=== PATIENT | female | born 1970 | race African-American/Black ===

== ENCOUNTER 2021-06-21 12:47 | Emergency (ER) | payer OTHER, SELFPAY ==
[2021-06-21 13:34] VITALS: BP 128/78; PULSE 100; RESP 16; TEMP 36.7; O2SAT 65
[2021-06-21 13:44] LABS: Appearance Urine Cloudy (Clear); Bilirubin Urine Negative (Negative); Blood Urine 2+ (Negative); Color Urine Yellow (Yellow); Glucose Urine UA Negative (Negative); Ketones Urine Negative (Negative); Leukocyte Esterase Ur Negative LEU/UL (Negative); Nitrate Urine Positive (Negative); Protein Urine Negative (Negative); Specific Grav Ur 1.025 (1.001-1.035); pH Urine 5.5 (5.0-9.0)
--- NOTE | 2021-06-21 13:48 | ED.FEMALEGU ---
HPI - Female Genitourinary General Chief complaint: Urogenital-Female Stated complaint: urinary s/s Time Seen by Provider: 06/21/21 12:51 History of Present Illness HPI Narrative: 50-year-old female presents to the emergency room with complaints of suprapubic pain and dysuria for 5 to 7 days. Patient denies any fever, Related Data Allergies Allergy/AdvReac Type Severity Reaction Status Date / Time No Known Allergies Allergy Unverified 11/05/17 10:26 Review of Systems Review of Systems: CONSTITUTIONAL: Denies fever, chills, or sweats. EYES: Denies visual changes, redness, or discharge. ENT: Denies rhinorrhea, congestion, sore throat, or otalgia. CARDIOVASCULAR: Denies chest pain, palpitations, or edema. RESPIRATORY: Denies cough or dyspnea. GASTROINTESTINAL: Reports suprapubic pain GENITOURINARY: Reports dysuria and hematuria SKIN: Denies rash or itching. MUSCULOSKELETAL: Denies back pain, joint pain, or myalgia. NEUROLOGIC: Denies headache, numbness, dizziness, or weakness. PSYCHIATRIC: Denies anxiety or depression. Exam Narrative: GENERAL: Well-appearing, well-nourished, and in no acute distress. HEAD: Normocephalic, atraumatic. EYES: PERRLA and EOMI.D CHEST: Clear to auscultation. No respiratory distress. No wheezes rales or rhonchi HEART: Regular rate and rhythm. No murmur heard. Normal peripheral pulses. ABDOMEN: Soft, suprapubic tenderness, nondistended, normal active bowel sounds. EXTREMITIES: Normal range of motion. No edema. SKIN: Warm, dry, no rash. NEURO: No focal deficits. Alert and oriented x3. PSYCH: Normal mood and affect. Course Vital Signs Vital signs: Vital Signs Temperature 36.7 C 06/21/21 13:34 Pulse Rate 100 06/21/21 13:34 Respiratory Rate 16 06/21/21 13:34 Blood Pressure 128/78 06/21/21 13:34 Pulse Oximetry 65 L 06/21/21 13:34 Temperature 36.7 C 06/21/21 13:34 Pulse Rate 100 06/21/21 13:34 Respiratory Rate 16 06/21/21 13:34 Blood Pressure 128/78 06/21/21 13:34 Pulse Oximetry 65 L 06/21/21 13:34 MDM - Female Genitourinary Lab Data Labs: Lab Results 06/21/21 Range/Units 13:20 Urine Color Yellow (Yellow) Urine Appearance Cloudy H (Clear) Urine pH 5.5 (5.0-9.0) Ur Specific [place] 1.025 (1.001-1.035) Urine Protein Negative (Negative) mg/dL Urine Glucose (UA) Negative (Negative) mg/dL Urine Ketones Negative (Negative) mg/dL Ur Blood (Man) 2+ H (Negative) Urine Nitrate Positive H (Negative) Urine Bilirubin Negative (Negative) Urine Urobilinogen 1.0 (<2.0) mg/dL Leukocyte Esterase Rfl Negative (Negative) SUSAN/UL Discharge Plan Discharge Clinical Impression: Urinary tract infection Qualifiers: Urinary tract infection type: acute cystitis Hematuria presence: with hematuria Qualified Code(s): N30.01 - Acute cystitis with hematuria Patient Disposition: Home, Self-Care Condition: Stable Instructions: Antibiotic Form, Dysuria (ED) Prescriptions: New nitrofurantoin monohyd/m-cryst [Macrobid] 100 mg capsule 100 mg PO Q12H 7 Days Qty: 14 RF: 0 Follow-up/Referrals: PHYSICIAN NOT ON STAFF,NONSTAFF [Primary Care Provider] - Time of Disposition: 13:50
[2021-06-21 13:54] LABS: Bacteria Urine Trace /hpf; Mucus Urine Few /lpf; Squamous Epithelial Cell Urine Many /hpf (Few)
[2021-06-21 14:01] LABS: Add Urine Microscopic? YES
== END 2021-06-21 14:00 | disposition home or self-care (01) ==
LOC: ANHED 13:56
PROVIDERS: Emergency Medicine; Emergency Provider Nurse Practitioner Family
DX: N30.01 Acute cystitis with hematuria (principal)
CPT/HCPCS: 81001; 99283

== ENCOUNTER 2021-11-11 09:32 | Emergency (ER) | payer OTHER, SELFPAY ==
--- NOTE | ~2021-11-11 | XR_ITS ---
EXAMINATION: XR foot LT min 3V DATE: 11/11/2021 10:22 INDICATION: Left foot pain. TECHNIQUE: 4 views of left foot were obtained. COMPARISON: None. FINDINGS: There is mild hallux valgus. No fracture. There is a benign bone island in first metatarsal . There is mild osteoarthritis of first metatarsophalangeal joint and some of the interphalangeal valentino nts. There is an enthesophyte at posterior aspect of calcaneal tuberosity. IMPRESSION: 1. Mild polyarticular osteoarthritis. 2. Mild hallux valgus. Reviewed, dictated and finalized at location B.
[2021-11-11 09:36] VITALS: BP 149/88; PULSE 65; RESP 14; TEMP 36.4; O2SAT 99
--- NOTE | 2021-11-11 10:13 | ED.LOWEXIN ---
HPI - Extremity Injury (Lower) General Chief Complaint: Extremity Injury, Lower Stated Complaint: left foot pain Time Seen by Provider: 11/11/21 09:48 History of Present Illness HPI Narrative: 51-year-old female presents the emergency room for gradual onset of left foot pain. Patient states the pain is worse when she is ambulating, and resolves when she is resting with her feet propped up. Patient denies any new shoes. Patient does endorse walking on concrete throughout the day. Patient has not taken any medications to alleviate her symptoms Related Data Allergies Allergy/AdvReac Type Severity Reaction Status Date / Time No Known Allergies Allergy Verified 11/11/21 09:38 Review of Systems Review of Systems: CONSTITUTIONAL: Denies fever, chills, or sweats. EYES: Denies visual changes, redness, or discharge. ENT: Denies rhinorrhea, congestion, sore throat, or otalgia. CARDIOVASCULAR: Denies chest pain, palpitations, or edema. RESPIRATORY: Denies cough or dyspnea. GASTROINTESTINAL: Denies abdominal pain, nausea, vomiting, or diarrhea. GENITOURINARY: Denies dysuria or hematuria. SKIN: Denies rash or itching. MUSCULOSKELETAL: Reports left foot pain NEUROLOGIC: Denies headache, numbness, dizziness, or weakness. PSYCHIATRIC: Denies anxiety or depression. Exam Narrative: GENERAL: Well-appearing, well-nourished, no physical limitations, and in no acute distress. HEAD: Normocephalic, atraumatic. EYES: Conjunctivae normal, PERRLA and EOMI. CHEST: Clear to auscultation. No respiratory distress. No wheezes rales or rhonchi. No tenderness. HEART: Regular rate and rhythm. No murmur heard. Normal peripheral pulses. EXTREMITIES: Left foot: Tenderness to the plantar fascia between the calcaneus and forefoot SKIN: Warm, dry, no rash. No noted wounds NEURO: No focal deficits. Alert and oriented x3. MAEW. CN's II-XI intact bilaterally, normal gait PSYCH: Cooperative. Normal mood and affect. Course Vital Signs Vital signs: Vital Signs Temperature 36.4 C L 11/11/21 09:36 Pulse Rate 65 11/11/21 09:36 Respiratory Rate 14 11/11/21 09:36 Blood Pressure 149/88 H 11/11/21 09:36 Pulse Oximetry 99 11/11/21 09:36 Oxygen Delivery Room Air 11/11/21 09:36 Temperature 36.4 C L 11/11/21 09:36 Pulse Rate 65 11/11/21 09:36 Respiratory Rate 14 11/11/21 09:36 Blood Pressure 149/88 H 11/11/21 09:36 Pulse Oximetry 99 11/11/21 09:36 Oxygen Delivery Room Air 11/11/21 09:36 Discharge Plan Discharge Clinical Impression: Plantar fasciitis Patient Disposition: Home, Self-Care Condition: Stable Instructions: Antibiotic Form, Plantar Fasciitis (ED), Plantar Fasciitis Exercises (ED) Prescriptions: New naproxen sodium 550 mg tablet 550 mg PO Q12H PRN (Reason: pain) Qty: 20 0RF No Action nitrofurantoin monohyd/m-cryst [Macrobid] 100 mg capsule 100 mg PO Q12H 7 Days Qty: 14 0RF Rx Instructions: must administer with a meal/food Follow-up/Referrals: Mike Mcnair DPM [Physician] - PHYSICIAN,[employer]ING [employer]ENT[employer] SUPERINTENDENT [Primary Care Provider] - Time of Disposition: 10:35
== END 2021-11-11 10:49 | disposition home or self-care (01) ==
PROVIDERS: Emergency Provider Nurse Practitioner Family
DX: M72.2 Plantar fascial fibromatosis (principal)
CPT/HCPCS: 73630; 99283

== ENCOUNTER 2022-01-13 15:45 | Emergency (ER) | payer OTHER, SELFPAY ==
[2022-01-13 16:03] VITALS: BP 138/97; PULSE 78; RESP 16; TEMP 36.9; O2SAT 100
--- NOTE | 2022-01-13 16:59 | ED.FEMALEGU ---
HPI - Female Genitourinary General Chief complaint: Urogenital-Female Stated complaint: uti Time Seen by Provider: 01/13/22 16:35 History of Present Illness HPI Narrative: 51-year-old female presented to the emergency department for evaluation symptoms consistent with a urinary tract infection. Patient states that she has increased foul-smelling urine and did have some back pain but denies any pain with urination. Patient also reports that 2 weeks ago she did have a day and a half of vaginal bleeding that resolved. Patient states she has been menopausal for approximately 6 years. Related Data Allergies Allergy/AdvReac Type Severity Reaction Status Date / Time No Known Allergies Allergy Verified 01/13/22 16:14 Review of Systems Review of Systems: CONSTITUTIONAL: Denies fever, chills, or sweats. EYES: Denies visual changes, redness, or discharge. ENT: Denies rhinorrhea, congestion, sore throat, or otalgia. CARDIOVASCULAR: Denies chest pain, palpitations, or edema. RESPIRATORY: Denies cough or dyspnea. GASTROINTESTINAL: Denies abdominal pain, nausea, vomiting, or diarrhea. GENITOURINARY: See HPI SKIN: Denies rash or itching. MUSCULOSKELETAL: Denies back pain, joint pain, or myalgia. NEUROLOGIC: Denies headache, numbness, or weakness. Exam Narrative: APPEARANCE: Well appearing, no pain, no distress, well-nourished. HEAD: normocephalic, atraumatic. EYES: PERRLA/EOMI, conjunctivae clear. NOSE: Normal no drainage NECK: Supple. No adenopathy, no masses. RESPIRATORY: Airway patent, respirations nonlabored. Clear to auscultation bilaterally, no rales, rhonchi, wheezing. CARDIOVASCULAR: Regular rate and rhythm without murmurs rubs or gallops. ABDOMINAL: Soft, nontender, nondistended, normal bowel sounds MUSCULOSKELETAL: Moves all extremities. Strength/ROM intact, No edema, No calf tenderness. NEURO: Alert. Cranial nerves II through XII intact. Grossly intact SKIN: Warm, dry. Normal Color Course Course Emergency Course: Patient was started on antibiotics for a urinary tract infection. Patient was updated the results of her work-up. All question concerns were addressed. Vital Signs Vital signs: Vital Signs Temperature 98.4 F 01/13/22 16:03 Pulse Rate 78 01/13/22 16:03 Respiratory Rate 16 01/13/22 16:03 Blood Pressure 138/97 H 01/13/22 16:03 Pulse Oximetry 100 01/13/22 16:03 Temperature 98.4 F 01/13/22 16:03 Pulse Rate 77 01/13/22 17:17 Respiratory Rate 15 01/13/22 17:17 Blood Pressure 133/88 01/13/22 17:17 Pulse Oximetry 99 01/13/22 17:17 MDM - Female Genitourinary Lab Data Labs: Lab Results 01/13/22 Range/Units 16:44 Urine Color Yellow (Yellow) Urine Appearance Slightly cloudy (Clear) Urine pH 6.0 (5.0-9.0) Ur Specific [place] 1.025 (1.001-1.035) Urine Protein Trace (Negative) mg/dL Urine Glucose (UA) Negative (Negative) mg/dL Urine Ketones Trace (Negative) mg/dL Ur Blood (Man) 2+ H (Negative) Urine Nitrate Positive H (Negative) Urine Bilirubin Negative (Negative) Urine Urobilinogen 1.0 (<2.0) mg/dL Leukocyte Esterase Rfl 1+ H (Negative) SUSAN/UL Urine RBC 21-50 H (0-2) /hpf Urine WBC 10-15 H /hpf Ur Squamous Epith Cells Many H (Few) /hpf Urine Mucus Heavy H /lpf Discharge Plan Discharge Clinical Impression: Urinary tract infection Patient Disposition: Home, Self-Care Condition: Stable Instructions: Antibiotic Form, Urinary Tract Infection in Women (ED) Additional Instructions: Antibiotic as directed until completed. Drink plenty fluids. Pyridium as needed for urinary pain. Have close follow-up with a primary care physician. Also recommend close follow-up with [employer]. If you have any worsening symptoms please call or return to the emergency department. Prescriptions: New cephalexin 500 mg capsule 500 mg PO Q12H 7 Days Qty: 14 0RF phenazopyridine [Pyridium] 100 mg tablet 100 m
[2022-01-13 17:03] LABS: Appearance Urine Slightly Cloudy (Clear); Bilirubin Urine Negative (Negative); Blood Urine 2+ (Negative); Color Urine Yellow (Yellow); Glucose Urine UA Negative (Negative); Ketones Urine Trace mg/dL (Negative); Leukocyte Esterase Ur 1+ LEU/UL (Negative); Nitrate Urine Positive (Negative); Protein Urine Trace mg/dL (Negative); Specific Grav Ur 1.025 (1.001-1.035)
[2022-01-13 17:09] LABS: Mucus Urine Heavy /lpf; RBC Urine 21-50 /hpf (0-2); Squamous Epithelial Cell Urine Many /hpf (Few)
[2022-01-13 17:10] LABS: Add Urine Microscopic? YES
[2022-01-13] MEDS: CEPHALEXIN 500 MG CAPSULE PO (17:14)
[2022-01-13] MEDS: PHENAZOPYRIDINE HCL 100 MG TABLET PO (17:14)
[2022-01-13 17:17] VITALS: BP 133/88; PULSE 77; RESP 15; O2SAT 99
== END 2022-01-13 17:17 | disposition home or self-care (01) ==
PROVIDERS: Emergency Provider Emergency Medicine
DX: N39.0 Urinary tract infection, site not specified (principal)
CPT/HCPCS: 81001; 87086; 87088; 99283; A9270

== ENCOUNTER 2024-06-18 13:14 | Emergency (ER) | payer MEDICAID, SELFPAY ==
--- OUTSIDE RECORDS SUMMARY | 2024-06-18 13:16 | XMS_ITS | Data Portability ---
Author Organization [facility] Address [address] [place] [address] Assessment No assessment recorded. Plan of Treatment Reminders Order Date Submit Date Provider Last Modified By Organization Details Last Modified Time Details Appointments None recorded. Lab urinalysis , dipstick 2016 017 [email or web address] 6 In-Office Order, Internal Use Only DO Not Attach Compendium DO Not Attach Compendium, Do Not Delete/merge, [id number] 7 18:40:47 test, urine 2016 017 [email or web address] 6 In-Office Order, Internal Use Only DO Not Attach Compendium DO Not Attach Compendium, Do Not Delete/merge, [id number] 7 18:40:47 urinalysis , dipstick 2014 015 3 In-Office Order, Internal Use Only DO Not Attach Compendium DO Not Attach Compendium, Do Not Delete/merge, [id number] 5 20:19:10 chlamydia trachomati s Ag, unspecifie d specimen, immunofluo rescence 2014 015 [facility], [address], [address], [place], [address], 5 09:55:04 urinalysis , dipstick 2014 015 [email or web address] 3 In-Office Order, Internal Use Only DO Not Attach Compendium DO Not Attach Compendium, Do Not Delete/merge, [id number] 5 20:35:53 Referral None recorded. Procedures None recorded. Surgeries None recorded. Imaging mammogram, screening 2014 015 [email or web address] Not available 5 16:14:57 Medication Orders ciprofloxa dolores 500 mg tablet 2016 017 [id number], [address], [place], [place], [id number], 7 18:41:14 phenazopyr idine 200 mg tablet 2016 017 [facility] #43042, [address], [place], [place], [id number], 7 18:42:06 Cipro 500 mg tablet 2014 015 [facility] #96065, [address], [place], [place], [id number], 5 20:19:14 Diflucan 150 mg tablet 2014 015 [facility] #87415, [address], [place], [place], [id number], 5 20:19:15 cyclobenza esteban 10 mg tablet 2014 015 [facility] #94960, [address] , [place], [place], [id number], 5 15:38:42 Cipro 250 mg tablet 2014 015 3 [facility]06190, [address], [place], [place], [id number], 5 20:35:53 Patient TargetsNo targets recorded. Patient Instructions Encounter Date Encounter Id Patient Instructions Last Modified By Organization Details Last Modified Time 03/20/2014 [id number] [place] [facility] 1. GOD 2.HERBS OF THE EARTH: Fruit, vegetables, nuts, & berries. Decrease the meat in your diet. 3.WATER. The life beverage 4.EXERCISE: You don't use it, You lose it. 5. SUNLIGHT: Be careful not get sunburned elías Not available 03/20/2014 20:35:53 YES, YOU HAVE A BLADDER INFECTION.b>Disch arge Instructions - Urinary Tract Infections - Drink plenty of fluids. - Increase vitamin C. - Avoid caffeine and alcohol. - Take all antibiotics unless stated otherwise. Return to see your doctor as needed elías Not available 03/20/2014 20:35:53 12/27/2014 [id number] [place] [facility] 1. GOD 2.HERBS OF THE EARTH: Fruit, vegetables, nuts, & berries. Decrease the meat in your diet. 3.WATER. The life beverage 4.EXERCISE: You don't use it, You lose it. 5. SUNLIGHT: Be careful not get sunburned elías Not available 12/27/2014 20:19:10 FOLLOW UP IN 2 WEEKS WITH YOUR DOCTOR. FOLLOW UP HERE NEEDED. elías Not available 12/27/2014 20:19:10 08/07/2016 [id number] I advised ff, evie any sodas with water .....avoid bubble baths , douching ; wipe front to back with toilet tissue. get a pcp megan Not available 08/07/2016 18:43:38 Reason for Referral None Reported. Results Created Date Observation Date Name Description Value Unit Range Abnormal Flag Note LastModifiedBy Organization Detail LastModifiedTime 08/08/19 17 08/07/2016 pregn karely test, urine HCG negati ve Not Available In-Office Order Internal Use Only DO Not Attach Compendium DO Not Attach Compendium, Do Not Delete/merge, [id number] 08/07/2016 18:32:03 08/08/19 17 08/07/2016 urina lysis , dipst ick Leukocytes Modera te Not Available In-Office Order Internal Use Only DO Not Attach Compendium DO Not Attach Compendium, Do Not Delete/merge, [id number] 08/07/2016 18:27:21 08/08/19 17 08/07/2016 urina lysis , dipst ick Nitrite negati ve Not Available In-Office Order Internal Use Only DO Not Attach Compendium DO Not Attach Compendium, Do Not Delete/merge, 08/07/2016 18:27:21 08/08/1908/07/2016 urina lysis , dipst ick Urobilinogen .2 Not Available In-Of fice Order Internal Use Only DO Not Attach Compendium DO Not Attach Compendium, Do Not Delete/merge, 08/07/2016 18:27:21 08/08/1908/07/2016 urina lysis , dipst ick Protein Trace Not Available In-Office Order Internal Use Only DO Not Attach Compendium DO Not Attach Compendium, Do Not Delete/merge, 08/07/2016 18:27:21 08/08/1908/07/2016 urina lysis , dipst ick pH 5.5 Not Available In-Office Order Internal Use Only DO Not Attach Compendium DO Not Attach Compendium, Do Not Delete/merge, 08/07/2016 18:27:21 08/08/1908/07/2016 urina lysis , dipst ick Blood Hemoly zed: Trace Not Available In-Office Order Internal Use Only DO Not Attach Compendium DO Not Attach Compendium, Do Not Delete/merge, 08/07/2016 18:27:21 08/08/1908/07/2016 urina lysis , dipst ick Specific [place] 1.005 Not Available In-Off ice Order Internal Use Only DO Not Attach Compendium DO Not Attach Compendium, Do Not Delete/merge, 08/07/2016 18:27:21 08/08/1908/07/2016 urina lysis , dipst ick Ketone Negati ve Not Available In-Office Order Internal Use Only DO Not Attach Compendium DO Not Attach Compendium, Do Not Delete/merge, 08/07/2016 18:27:21 08/08/1908/07/2016 urina lysis , dipst ick Bilirubin Negati ve Not Available In-Office Order Internal Use Only DO Not Attach Compendium DO Not Attach Compendium, Do Not Delete/merge, 08/07/2016 18:27:21 08/08/1908/07/2016 urina lysis , dipst ick Glucose Negati ve Not Available In-Office Order Internal Use Only DO Not Attach Compendium DO Not Attach Compendium, Do Not Delete/merge, [id number] 08/07/2016 18:27:21 08/08/19 17 08/07/2016 urina lysis , dipst ick Appearance Cloudy Not Available In-Offi ce Order Internal Use Only DO Not Attach Compendium DO Not Attach Compendium, Do Not Delete/merge, [id number] 08/07/2016 18:27:21 08/08/19 17 08/07/2016 urina lysis , dipst ick Color Pale Yellow Not Available In-Office Order Internal Use Only DO Not Attach Compendium DO Not Attach Compendium, Do Not Delete/merge, [id number] 08/07/2016 18:27:21 12/28/19 15 12/27/2014 urina lysis , dipst ick Leukocytes Negati ve Not Available In-Office Order Internal Use Only DO Not Attach Compendium DO Not Attach Compendium, Do Not Delete/merge, [id number] 12/27/2014 19:45:20 12/28/19 15 12/27/2014 urina lysis , dipst ick Nitrite positi ve Not Available In-Office Order Internal Use Only DO Not Attach Compendium DO Not Attach Compendium, Do Not Delete/merge, [id number] 12/27/2014 19:45:20 12/28/19 15 12/27/2014 urina lysis , dipst ick Urobilinogen .2 Not Available In-Of fice Order Internal Use Only DO Not Attach Compendium DO Not Attach Compendium, Do Not Delete/merge, [id number] 12/27/2014 19:45:20 12/28/19 15 12/27/2014 urina lysis , dipst ick Protein Negati ve Not Available In-Office Order Internal Use Only DO Not Attach Compendium DO Not Attach Compendium, Do Not Delete/merge, [id number] 12/27/2014 19:45:20 12/28/19 15 12/27/2014 urina lysis , dipst ick pH 8.5 Not Available In-Office Order Internal Use Only DO Not Attach Compendium DO Not Attach Compendium, Do Not Delete/merge, [id number] 12/27/2014 19:45:20 12/28/19 15 12/27/2014 urina lysis , dipst ick Blood Small Not Available In-Office Order Internal Use Only DO Not Attach Compendium DO Not Attach Compendium, Do Not Delete/merge, [id number] 12/27/2014 19:45:20 12/28/19 15 12/27/2014 urina lysis , dipst ick Specific [place] 1.010 Not Available In-Off ice Order Internal Use Only DO Not Attach Compendium DO Not Attach Compendium, Do Not Delete/merge, [id number] 12/27/2014 19:45:20 12/28/19 15 12/27/2014 urina lysis , dipst ick Ketone Negati ve Not Available In-Office Order Internal Use Only DO Not Attach Compendium DO Not Attach Compendium, Do Not Delete/merge, [id number] 12/27/2014 19:45:20 12/28/19 15 12/27/2014 urina lysis , dipst ick Bilirubin Negati ve Not Available In-Office Order Internal Use Only DO Not Attach Compendium DO Not Attach Compendium, Do Not Delete/merge, [id number] 12/27/2014 19:45:20 12/28/19 15 12/27/2014 urina lysis , dipst ick Glucose Negati ve Not Available In-Office Order Internal Use Only DO Not Attach Compendium DO Not Attach Compendium, Do Not Delete/merge, [id number] 12/27/2014 19:45:20 12/28/19 15 12/27/2014 urina lysis , dipst ick Appearance Slight ly Cloudy Not Available In-Office Order Internal Use Only DO Not Attach Compendium DO Not Attach Compendium, Do Not Delete/merge, [id number] 12/27/2014 19:45:20 12/28/19 15 12/27/2014 urina lysis , dipst ick Color Dark Yellow Not Available In-Office Order Internal Use Only DO Not Attach Compendium DO Not Attach Compendium, Do Not Delete/merge, [id number] 12/27/2014 19:45:20 03/20/19 15 03/20/2014 urina lysis , dipst ick Leukocytes Small Not Available In-Offi ce Order Internal Use Only DO Not Attach Compendium DO Not Attach Compendium, Do Not Delete/merge, [id number] 03/20/2014 20:11:19 03/20/1903/20/2014 urina lysis , dipst ick Nitrite positi ve Not Available In-Office Order Internal Use Only DO Not Attach Compendium DO Not Attach Compendium, Do Not Delete/merge, 03/20/2014 20:11:19 03/20/1903/20/2014 urina lysis , dipst ick Urobilinogen 1 Not Available In-Of fice Order Internal Use Only DO Not Attach Compendium DO Not Attach Compendium, Do Not Delete/merge, 03/20/2014 20:11:19 03/20/1903/20/2014 urina lysis , dipst ick Protein Negati ve Not Available In-Office Order Internal Use Only DO Not Attach Compendium DO Not Attach Compendium, Do Not Delete/merge, 03/20/2014 20:11:19 03/20/1903/20/2014 urina lysis , dipst ick pH 7.0 Not Available In-Office Order Internal Use Only DO Not Attach Compendium DO Not Attach Compendium, Do Not Delete/merge, 03/20/2014 20:11:19 03/20/1903/20/2014 urina lysis , dipst ick Blood Small Not Available In-Office Order Internal Use Only DO Not Attach Compendium DO Not Attach Compendium, Do Not Delete/merge, 03/20/2014 20:11:19 03/20/1903/20/2014 urina lysis , dipst ick Specific [place] 1.015 Not Available In-Off ice Order Internal Use Only DO Not Attach Compendium DO Not Attach Compendium, Do Not Delete/merge, 03/20/2014 20:11:19 03/20/1903/20/2014 urina lysis , dipst ick Ketone Negati ve Not Available In-Office Order Internal Use Only DO Not Attach Compendium DO Not Attach Compendium, Do Not Delete/merge, 03/20/2014 20:11:19 03/20/1903/20/2014 urina lysis , dipst ick Bilirubin Negati ve Not Available In-Office Order Internal Use Only DO Not Attach Compendium DO Not Attach Compendium, Do Not Delete/merge, [id number] 03/20/2014 20:11:19 03/20/19 15 03/20/2014 urina lysis , dipst ick Glucose Negati ve Not Available In-Office Order Internal Use Only DO Not Attach Compendium DO Not Attach Compendium, Do Not Delete/merge, [id number] 03/20/2014 20:11:19 03/20/19 15 03/20/2014 urina lysis , dipst ick Appearance Clear Not Available In-Offi ce Order Internal Use Only DO Not Attach Compendium DO Not Attach Compendium, Do Not Delete/merge, [id number] 03/20/2014 20:11:19 03/20/19 15 03/20/2014 urina lysis , dipst ick Color Pale Yellow Not Available In-Office Order Internal Use Only DO Not Attach Compendium DO Not Attach Compendium, Do Not Delete/merge, [id number] 03/20/2014 20:11:19 05/30/19 15 05/23/2014 mammo gram, scree ramy No observ ation record ed. [email or web address] [place], [address], 05/30/2014 16:41:28 06/11/19 15 06/07/2014 mammo gram, diagn ostic No observ ation record ed. [address] ([facility]) [address] [place], [address], 06/11/2014 07:51:07 06/14/19 15 06/07/2014 imagi ng/di agnos tic resul t No observ ation record ed. [email or web address] (Lab) [address] [place], [address], 06/13/2014 14:02:58 06/14/19 15 06/07/2014 mammo gram, diagn ostic No observ ation record ed. [email or web address] Not Available 06/2014 13:57:42 06/14/19 15 06/07/2014 ultra sound , breas t No observ ation record ed. [email or web address] Not Available 06/2014 13:57:43 Result Notes None recorded. Problems Name Problem SNOMED Code Status Onset Date Resolution Date Notes Provider Name and Address Organization Details Recorded Time Urinary tract infectious disease 71509789 Active Manuel Tellez MD Attn: Geo ragsdale,[address] [facility], [place], [address], [facility] 5 20:19:09 Inguinal pain 646638560 Active Andrade Bowser MD Attn: Geo ragsdale,[address] [facility], [place], [address], [facility] 5 15:38:28 Mammography abnormal 189886272 Active Andrade Bowser MD Attn: Geo ragsdale,[address] [facility], [place], [address], [facility] 5 16:42:08 Problem Notes None recorded. Procedures Surgical History Date Name Laterality Status Provider Name and Address Organization Details Recorded Time 7 Tubal Ligation completed Andrade Bowser MD Attn: [employer], [place], [address], [facility] 04/05/2014 15:20:46 Imaging Results Imaging Date Name Status LastModified by Organiz ation Details LastModified Time 05/23/2014 mammogram, screening completed [address] [place], [address], 05/30/2014 16:41:28 06/07/2014 mammogram, diagnostic completed [address] (Rad) [address] [place], [address], 06/11/2014 07:51:07 06/07/2014 imaging/diagnos tic result completed [address] (Lab) [address] [place], [address], 06/13/2014 14:02:58 06/07/2014 mammogram, diagnostic [place] [id number] Information not available 06/13/2014 13:57:42 06/07/2014 ultrasound, breast completed [place] [id number] Information not available 06/13/2014 13:57:43 Procedure Notes None recorded. Medical Equipment None Reported. Allergies No known drug allergies Medications Name Sig Start Date Stop Date Status Note LastModified by Organization Details LastModified Time vitamin d 59663 unit caps active Not Available Not Available No t Available ciprofloxacn tab 250mgciprofloxac in hcl active Not Available Not Available Not Available cyclobenzapr tab 10mgcyclobenzapr ine hcl active Not Available Not Available Not Available mupirocin 2 % oint active Not Available Not Available Not Available cyclobenzaprine 10 mg tablet Take 1 tablet 3 times a day by oral route for 10 days. 2014 active Not Available Not Available Not Avai lable phenazopyridine 200 mg tablet Take 1 tablet 3 times a day by oral route for 2 days. 2016 active Not Available Not Available Not Avai lable Diflucan 150 mg tablet Take 1 tablet by mouth now and repeat in 1 week 2014 active Not Available Not Available Not Avai lable ciprofloxacin 500 mg tablet Take 1 tablet every 12 hours by oral route for 10 days. 2016 active Not Available Not Available Not Avai lable Cipro 250 mg tablet Take 1 tablet every 12 hours by oral route. 2014 active Not Available Not Available Not Avai lable Vitals Date Recorded Respiratory rate Body weight Body height Body temperature Heart rate Body mass index (BMI) Systolic blood pressure Diastolic blood pressure Provider Name and Address Organization Details Last Updated DateTime 5 18 /min 69875.2 5712 g 172.72 cm 99.1 [degF] 60 /min 26.8 kg/m2 130 mm[Hg] 82 mm[Hg] Jim Frederick [facility] 5 19:45:20 Date Recorded Respiratory rate Oxygen saturation Oxygen saturation in Arterial blood by Pulse oximetry Body weight Body temperature Heart rate Body mass index (BMI) Body height Systolic blood pressure Diastolic blood pressure Provider Name and Address Organization Details Last Updated DateTime 5 18 /min 97 % 97 % 04711.9 6394 g 98.9 [degF] 70 /min 24.6 kg/m2 172.72 cm 110 mm[Hg] 82 mm[Hg] Aakash Zepeda MA [facility] 5 20:11:19 Date Recorded Body weight Body height Body mass index (BMI) Systolic blood pressure Diastolic blood pressure Provider Name and Address Organization Details Last Updated DateTime 04/05/2014 66557.07 0969 g 175.26 cm 24.2 kg/m2 100 mm[Hg] 60 mm[Hg] Racquel Cox MA [facility] 5 15:01:38 Date Recorded Body weight Heart rate Respiratory rate Body temperature Body height Body mass index (BMI) Systolic blood pressure Diastolic blood pressure Provider Name and Address Organization Details Last Updated DateTime 7 40891.4 5 g 76 /min 18 /min 97.9 [degF] 172.72 cm 23.9 kg/m2 102 mm[Hg] 60 mm[Hg] Jim Frederick [facility] 7 18:17:00 Social History None recorded. Functional Status None recorded. Mental Status None recorded. Family History Relationship Description Onset Age of this Age Resolved Age Notes LastModified by Organization Details LastModified Time Mother Malignant tumor of breast [email or web address] Not available 2014 20:11:19 Medical History Condition Response Heart Problems N Other N Breast Cancer N Thyroid Problems N Kidney or Bladder Problems N Lung Disease N Depression N GI Problems N Acne N Breast Problem N Eating Disorder N Anemia N Anesthesia Complications N Headaches/Migraines N Ovarian Cancer N Diabetes N Anxiety Disorder N Blood Transfusions N Arthritis N Polyps N Infertility N Acid Reflux (GERD) N Cancer N Stroke N Abuse/Domestic Violence N Asthma N Endometriosis N High Cholesterol N Hepatitis N Heart Disease N Fibromyalgia N Pre-Eclampsia N Hypertension N Osteoporosis N Kidney Disease N Gynecological History Statement/Question Response Date of LMP 07/24/2016 Obstetrics History GPAL:G 6 P 3 0 3 4 Type Value Multiple Births 1 Full Term 3 Induced 1 Spontaneous 2 Premature 0 Living 4 Ectopics 0 Total 6 Past Encounters Encounter ID Performer Location Encounter Start Date Encounter Closed Date Diagnosis/Indication Diagnosis SNOMED-CT Code Diagnosis ICD10 Code Diagnosis Note [id number] Manuel Tellez MD [address] [address] 03/20/2014 20:01:42 03/21/2014 17:49:30 Urinary tract infectious disease 58875430 [id number] Andrade Bowser MD [facility] (DIRECTOR OF MANAGED CARE) [address] [place] [address] 04/05/2014 14:45:20 04/05/2014 16:35:39 Gynecologic examination 12550665 Inguinal pain 603905296 [id number] Manuel Tellez MD [address] [address] 12/27/2014 18:07:42 01/06/2015 15:12:42 Urinary tract infectious disease 03398077 N39.0 [id number] Josue Vega PA-C [address] [address] 08/07/2016 17:52:19 08/08/2016 15:53:07 Urinary tract infectious disease 16539138 N39.0 Health Concerns Section Related Observation LastModified by Organization Detai ls LastModified Time None Recorded Concern Status LastModified by Organization Details LastModified Time None Recorded Advance Directives Directive None Recorded Payers Encounter Date Sequence Insurance Name Policy Number Policy [place] Covered Member ID [place] Member ID Guarantor Name 03/20/2014 1 [facility] (MEDICAID HMO) Xiao Saab [id number] Xiao Saab 12/27/2014 1 [facility] (MEDICAID HMO) Xiao Saab [id number] Xiao Saab 08/07/2016 1 [facility] (MEDICAID HMO) Xiao Saab [id number] Xiao Saab 08/07/2016 1 [place] [facility] Xiao Saab [id number] Xiao Saab Notes Date Note Type Note Provider Name and Address Organization Details Recorded Time 03/20/2014 text/html Follow up. C/o dysuria, frequency. Manuel Tellez MD Attn: Accounting,[address] [place], [address], [facility] 03/21/2014 00:05:47 04/05/2014 text/html 43 yr. old aaf h ere for annual exam. C/O occassional sharp pain on left lower pelvic area. Pain last less than a minute. Pain occurs two -three times a day on job. Works in a warehouse. Lifts boxes. Last pap smear 2102 which was neg. wants STD check Andrade Bowser MD Attn: Accounting,[address] [facility] [place], [address], [facility] 04/05/2014 15:38:41 12/27/2014 text/html Generic HPI TemplateReported bypatient.Notes:C/O DARK SMELLING URINE AND DYSURIA. Manuel Tellez MD Attn: Accounting,[address] [facility], [place], [address], [facility] 01/04/2015 20:16:16 08/07/2016 text/html drinks soda , ve ry little water. Josue Vega PA-C Attn: Accounting,[address] [facility], [place], [address], [facility] 08/07/2016 19:41:29 OBGyn Episode No OBEpisode recorded.
[2024-06-18 13:39] VITALS: BP 145/87; PULSE 69; RESP 16; TEMP 36.3; O2SAT 100
--- NOTE | 2024-06-18 15:21 | ED.DENTAL ---
HPI - Dental/Oral General Chief complaint: Dental/Oral Stated complaint: Right lower jaw pain from teeth Time Seen by Provider: 06/18/24 15:14 Source: patient Mode of arrival: ambulatory Limitations: no limitations History of Present Illness HPI Narrative: RIGHT LOWER WISDOM TOOTH PAIN STARTED 6 DAYS AGO, LAST TIME WAS SEEN BY DENTIST YEARS AGO. SCHEDULED TO SEE A DENTIST ON THE OF THIS MONTH. SHE DENIES ANY FEVER, CHILLS, NAUSEA, VOMITING, TROUBLE SWALLOWING OR BREATHING OR HEADACHE Related Data Allergies Allergy/AdvReac Type Severity Reaction Status Date / Time No Known Allergies Allergy Verified 06/18/24 13:15 Review of Systems Review of Systems: All systems reviewed & are unremarkable except as noted in HPI and below Exam Narrative: GENERAL APPEARANCE: WELL-DEVELOPED, WELL-NOURISHED SKIN: NORMAL COLOR HEAD: NORMOCEPHALIC, NONTRAUMATIC EYES: CLEAR CONJUNCTIVA ENT: RIGHT LOWER WISDOM TOOTH IMPACTED, DECAY HEAD SURROUNDED BY ERYTHEMA AND SWELLING GUM, NO ABSCESS NECK: SUPPLE, NONTENDER CHEST AND RESPIRATORY: AIRWAY PATENT, NO RESPIRATORY DISTRESS, NO ACCESSORY MUSCLE USE HEART: REGULAR RATE/RHYTHM ABDOMEN: SOFT, NONTENDER, NO ORGANOMEGALY, QUIET BOWEL SOUNDS MUSCULOSKELETAL: NORMAL RANGE OF MOTION, NONTENDER BACK NEUROLOGIC: ALERT AND ORIENTED ?3, METAL TILE SETTER IS NORMAL TESTED, NO GROSS MOTOR DEFICIT Course Vital Signs Vital signs: Vital Signs Temperature 36.3 C L 06/18/24 13:39 Pulse Rate 06/18/24 13:39 Respiratory Rate 16 06/18/24 13:39 Blood Pressure 145/87 H 06/18/24 13:39 Pulse Oximetry 100 06/18/24 13:39 Temperature 36.3 C L 06/18/24 13:39 Pulse Rate 06/18/24 13:39 Respiratory Rate 16 06/18/24 13:39 Blood Pressure 145/87 H 06/18/24 13:39 Pulse Oximetry 100 06/18/24 13:39 MDM - Dental/Oral MDM Narrative Medical decision making narrative: DIFFERENTIAL DIAGNOSIS DID DENTAL INFECTION, IMPACTED WISDOM TOOTH Differential Diagnosis Differential diagnosis: Likely other ( ABOVE) Discharge Plan Discharge Clinical Impression: Dental caries Patient Disposition: Home Condition: Stable Instructions: Antibiotic Form, Toothache (ED) Additional Instructions: RETURN IF SYMPTOMS ARE WORSENING , CONTINUE HOME MEDICATIONS. TAKE IBUPROFEN 800 MG EVERY 8 HOURS NEED Patient Language: Vietnamese Prescriptions: New penicillin V potassium 500 mg tablet 500 mg PO Q6H Qty: 40 0RF ibuprofen [IBU] 800 mg tablet 800 mg PO TID Qty: 20 0RF No Action nitrofurantoin monohyd/m-cryst [Macrobid] 100 mg capsule 100 mg PO Q12H 7 Days Qty: 14 0RF Rx Instructions: must administer with a meal/food naproxen sodium 550 mg tablet 550 mg PO Q12H PRN (Reason: pain) Qty: 20 0RF cephalexin 500 mg capsule 500 mg PO Q12H 7 Days Qty: 14 0RF phenazopyridine [Pyridium] 100 mg tablet 100 mg PO TID PRN (Reason: pain) Qty: 6 0RF Follow-up/Referrals: PHYSICIAN,COMMUNITY HEALTH PLANNING DIRECTOR [Primary Care Provider] -
== END 2024-06-18 16:20 | disposition home or self-care (01) ==
PROVIDERS: Emergency Provider Emergency Medicine
DX: K02.9 Dental caries, unspecified (principal)
CPT/HCPCS: 99283